=== PATIENT | female | born 1965 | race Caucasian/White ===

== ENCOUNTER 2024-07-31 20:31 | Emergency (ER) | payer OTHER ==
[~2024-07-31] VITALS: Ht 154.9 cm; Wt 68.9 kg
[2024-07-31 20:57] VITALS: BP 85/59; PULSE 149; RESP 20; TEMP 98.2; O2SAT 96
[2024-07-31] MEDS: methylPREDNISolone SS 125 MG/2 ML VIAL IVP ONE (21:00)
[2024-07-31] MEDS: diphenhydrAMINE 50 MG/ML VIAL IVP ONE (21:00)
[2024-07-31] MEDS: FAMOTIDINE 20 MG/2 ML VIAL IVP ONE (21:05)
[2024-07-31] MEDS: EPINEPHrine 1 MG/ML AMP IM ONE (21:06)
[2024-07-31 21:09] VITALS: BP 113/67; PULSE 131; RESP 18
[2024-07-31 21:42] VITALS: O2SAT 95
[2024-08-01] MEDS ORDERED: EPIN1KIT31 IM (00:33)
[2024-08-01] MEDS ORDERED: PRED20TA5 PO (00:33)
== END 2024-08-01 00:42 | disposition home or self-care (01) ==
LOC: MED 20:31
DX: T78.02XA Anaphylactic reaction due to shellfish (crustaceans), initial encounter (principal); E11.9 Type 2 diabetes mellitus without complications; I10 Essential (primary) hypertension; Z79.899 Other long term (current) drug therapy; Z91.013 Allergy to seafood
CPT/HCPCS: 96372; 96374; 96375; 99284; J0171; J1200; J2919; J3490